=== PATIENT | female | born 1975 | race African-American/Black ===

== ENCOUNTER 2021-06-24 19:01 | Emergency (ER) | payer OTHER ==
[2021-06-24 19:13] VITALS: BP 139/80; PULSE 94; TEMP 98; BMI 36.1
== END 2021-06-24 20:02 | disposition home or self-care (01) ==
LOC: JER 19:01
DX: J06.9 Acute upper respiratory infection, unspecified (principal)
CPT/HCPCS: 87804; 87807; 99283-25; C9803; U0003; U0005

== ENCOUNTER 2024-01-20 16:06 | Emergency (ER) | payer OTHER ==
[2024-01-20 16:11] VITALS: BP 155/81; PULSE 98; RESP 18; TEMP 100; BMI 36.9
== END 2024-01-20 17:10 | disposition home or self-care (01) ==
LOC: JER 16:06 → JERFT 16:06
DX: R51.9 Headache, unspecified (principal); R50.9 Fever, unspecified; J02.9 Acute pharyngitis, unspecified; R09.81 Nasal congestion; J06.9 Acute upper respiratory infection, unspecified; U07.1 COVID-19
CPT/HCPCS: 0241U-QW; 99283-25